=== PATIENT | female | born 1950 | race African-American/Black ===

== ENCOUNTER 2023-06-28 07:42 | Outpatient (CLI) | payer OTHER, MEDICAID | END 2023-06-28 07:43 | disposition home or self-care (01) | LOC: CSHCP 07:42 | PROVIDERS: ATTEND Student in an Organized Health Care Education/Training Program | DX: R91.1 Solitary pulmonary nodule (principal); J44.9 Chronic obstructive pulmonary disease, unspecified | CPT/HCPCS: 94060; 94729; 94760 ==